=== PATIENT | male | born 1950 | race Caucasian/White ===

== ENCOUNTER 2020-04-29 20:17 | Emergency (ER) | payer OTHER ==
[~2020-04-29] VITALS: Ht 165.1 cm; Wt 68.0 kg
[2020-04-29] MEDS ORDERED: [UNRECOGNIZED DRUG - REMARK] (20:36)
[2020-04-29] MEDS ORDERED: METF-440 PO (20:36)
--- NOTE | 2020-04-29 20:42 | NUR ---
Dr. Reyna at bedside for MSE
[2020-04-29] MEDS ORDERED: ONDANSETRON ODT 4 MG TAB.RAPDIS SL ONE (20:45)
[2020-04-29] MEDS ORDERED: HYDROCODONE/APAP 10-325 MG TABLET PO ONE (20:45)
--- NOTE | 2020-04-29 20:56 | NUR ---
pt out of er for ct/xray
[2020-04-29] MEDS ORDERED: ONDANSETRON ODT 4 MG TAB.RAPDIS ONE (21:19)
[2020-04-29] MEDS ORDERED: HYDROCODONE/APAP 10-325 MG TABLET ONE (21:20)
--- NOTE | 2020-04-29 21:20 | NUR ---
pt back from radiology
--- NOTE | 2020-04-29 22:12 | NUR ---
Patient discharged to home in stable condition. Written and verbal after care instructions given. Patient verbalizes understanding of instructions. Stressed follow up or return to ER for worsening s/s. a/o x4. able to speak in complete sentences. no signs of acute neuro deficits no s/s of distress ambulatory with steady gait all belongings with pt instructed pt not to drive pt's will drive pt home
[2020-04-29 22:17] VITALS: BP 150/89
== END 2020-04-29 22:12 | disposition home or self-care (01) ==
LOC: ER 20:21
DX: S16.1XXA Strain of muscle, fascia and tendon at neck level, initial encounter (principal); V43.52XA Car driver injured in collision with other type car in traffic accident, initial encounter; Y92.410 Unspecified street and highway as the place of occurrence of the external cause; S39.012A Strain of muscle, fascia and tendon of lower back, initial encounter; S29.012A Strain of muscle and tendon of back wall of thorax, initial encounter; S40.011A Contusion of right shoulder, initial encounter; S80.01XA Contusion of right knee, initial encounter; R73.03 Prediabetes; Z79.84 Long term (current) use of oral hypoglycemic drugs
CPT/HCPCS: 71045; 72125; 72131; 73030; A4663; Q0162

== ENCOUNTER 2022-07-05 21:27 | Emergency (ER) | payer OTHER ==
[~2022-07-05] VITALS: Ht 165.1 cm; Wt 72.6 kg
[~2022-07-05 21:27] MED LIST: METF-440 PO; [UNRECOGNIZED DRUG - REMARK]
[2022-07-05] MEDS ORDERED: IV NORMAL SALINE 1000 ML BAG IV ONE (21:45)
--- NOTE | 2022-07-05 22:15 | NUR ---
Pt taken for CT.
[2022-07-05 22:17] LABS: HEMATOCRIT 47.4 % (36.7-47.1); MEAN CORPUSCULAR HEMOGLOBIN 29.8 uug (23.8-33.4); MEAN CORPUSCULAR VOLUME 87.3 fL (73.0-96.2); PLATELET COUNT (AUTO) 269 K/uL (152-348)
[2022-07-05 22:20] LABS: CARBON DIOXIDE 26 mmol/L (21-32); CHLORIDE 102 mmol/L (98-107); POTASSIUM 3.7 mmol/L (3.5-5.1); UREA NITROGEN, BLOOD 21 mg/dL (7-18)
[2022-07-05 22:23] LABS: GLUCOSE 314 mg/dL (74-106)
--- NOTE | 2022-07-05 22:25 | NUR ---
PT back from CT.
[2022-07-05 22:28] LABS: ALANINE AMINOTRANSFERASE 20 U/L (16-63); ALKALINE PHOSPHATASE 144 U/L (50-136); ASPARTATE AMINOTRANSFERASE 6 U/L (15-37); BILIRUBIN,DIRECT 0.3 mg/dL (0.0-0.2); BILIRUBIN,TOTAL 2.5 mg/dL (0.2-1.0); TOTAL PROTEIN, SERUM 8.1 g/dL (6.4-8.2)
[2022-07-05 23:28] LABS: *BILIRUBIN,URIN NEGATIVE (NEGATIVE); *CLARITY,URINE CLEAR (CLEAR); *COLOR,URINE YELLOW (YELLOW); *KETONES,URINE 1+ (NEGATIVE); *UROBILINOGEN,URINE 0.2 E.U./dl (NORMAL); LEUKOCYTE ESTERASE ,URINE NEGATIVE (NEGATIVE); NITRITE, URINE NEGATIVE (NEGATIVE); PH,URINE 6.5 (5.0-8.0); UGLUCOSE 2+ (NEGATIVE)
[2022-07-05 23:33] LABS: *BLOOD, URINE TRACE (NEGATIVE)
[2022-07-05 23:36] LABS: BACTERIA,URINE FEW /HPF (NONE SEEN); SQUAMOUS EPITHELIAL CELL,UR FEW /HPF (NONE SEEN)
[2022-07-06] MEDS ORDERED: SULF1TAB48 PO (00:14)
[2022-07-06] MEDS ORDERED: SULFAMETH/TRIMETH 800/160 MG TABLET PO ONE (00:30)
[2022-07-06] MEDS ORDERED: SULFAMETH/TRIMETH 800/160 MG TABLET ONE (00:31)
--- NOTE | 2022-07-06 00:45 | NUR ---
called patient's , was told "oh, it's late I'm tired I can't drive at night. I will come and get him in the morning" then I asked what time in the morning, she said "oh anytime honey" then hung up the phone.
--- NOTE | 2022-07-06 01:45 | NUR ---
Patient discharged to home in stable condition. Written and verbal after care instructions given. Patient verbalizes understanding of instructions. Stressed follow up or return to ER for worsening s/s. Patient is able to walk with steady gait. NAD noted. Patient is accompanied by his son
[2022-07-06 02:02] VITALS: BP 134/84
== END 2022-07-06 01:45 | disposition home or self-care (01) ==
LOC: ER 21:27
DX: N39.0 Urinary tract infection, site not specified (principal); F09 Unspecified mental disorder due to known physiological condition; E83.42 Hypomagnesemia; R94.31 Abnormal electrocardiogram [ECG] [EKG]; G89.29 Other chronic pain; M54.50 Low back pain, unspecified; E11.9 Type 2 diabetes mellitus without complications; Z79.84 Long term (current) use of oral hypoglycemic drugs; Z91.81 History of falling; R00.0 Tachycardia, unspecified
CPT/HCPCS: 99285; 96360; 70450; 71045; 80076; 80048; 81001; 83735; 85025; 84145; 85730; 87040 ×2; 87086; 84484; 36415; 93005; 83605; J7040